=== PATIENT | female | born 1945 | race Caucasian/White ===

== ENCOUNTER 2017-02-27 08:00 | Outpatient (CLI) | payer OTHER | END 2017-02-27 08:10 | disposition home or self-care (01) | LOC: LAB 08:00 | DX: D50.0 Iron deficiency anemia secondary to blood loss (chronic) (principal); E78.4 Other hyperlipidemia; E11.9 Type 2 diabetes mellitus without complications; C50.119 Malignant neoplasm of central portion of unspecified female breast ==